=== PATIENT | female | born 1960 | race Caucasian/White ===

== ENCOUNTER → 2016-09-12 | Outpatient (CLI) | payer BC | LOC: MC.RAD 13:51 | DX: N63 Unspecified lump in breast (principal); Z80.3 Family history of malignant neoplasm of breast ==

== ENCOUNTER 2017-12-26 12:33 | Emergency (ER) | payer BC ==
[~2017-12-26] VITALS: Ht 162.6 cm; Wt 83.2 kg
[2017-12-26 12:36] VITALS: TEMP 97.6
[2017-12-26 13:00] VITALS: BP 139/89
[2017-12-26] MEDS ORDERED: CIPRO 500MG TA500 MG PO (13:04)
[2017-12-26 13:18] LABS: HEMATOCRIT 41.8 % (37.0-47.0); HEMOGLOBIN 13.8 g/dl (12.5-16.0); MEAN CELL VOLUME 90 fl (80.0-100.0); MEAN CORPUSCULAR HEMOGLOBIN 30 pg (27.0-31.0); MEAN CORPUSCULAR HGB CONC 33 g/dl (33.0-37.0); MEAN PLATELET VOLUME 9.2 fl (7.4-10.4); PLATELET COUNT 391 K/mm3 (130-400); RED BLOOD COUNT 4.64 M/mm3 (4.10-5.30)
[2017-12-26 13:24] LABS: INR 1.2 (0.8-3.0); PROTHROMBIN TIME 13.8 SECONDS (9.7-12.8)
[2017-12-26 13:32] LABS: ALBUMIN 4.5 gm/dL (3.5-5.0); BILIRUBIN,TOTAL 0.4 mg/dL (0.0-1.0); CALCIUM 10.2 mg/dL (8.4-10.2); CREATININE, serum 0.73 mg/dL (0.52-1.25); POTASSIUM 3.7 mmol/L (3.4-5.0); TOTAL PROTEIN 8.3 gm/dL (6.4-8.2)
[2017-12-26 13:36] LABS: BAND 10 % (0-10); LYMPHOCYTE 68 % (20.0-51.0); NEUTROPHILS 14 % (42.0-75.2); PLATELET ESTIMATE NORMAL (NORMAL)
[2017-12-26] MEDS ORDERED: ZOFRAN 4MG T4 MG/TAB PO (16:10)
[2017-12-26 16:17] VITALS: PULSE 94
== END 2017-12-26 16:17 | disposition home or self-care (01) ==
LOC: COL.ER 12:33
PROVIDERS: Emergency Medicine
DX: R11.10 Vomiting, unspecified (principal); Z79.01 Long term (current) use of anticoagulants; Z86.718 Personal history of other venous thrombosis and embolism
CPT/HCPCS: J2405; J7030; Q9967

== ENCOUNTER → 2018-03-27 | Outpatient (CLI) | payer BC ==
[~2018-03-27] MED LIST: CIPRO 500MG TA500 MG PO; ZOFRAN 4MG T4 MG/TAB PO
== END ==
LOC: COL.VAS 08:38
DX: Z13.6 Encounter for screening for cardiovascular disorders (principal); Z86.718 Personal history of other venous thrombosis and embolism

== ENCOUNTER → 2018-06-18 | Outpatient (CLI) | payer BC | LOC: MC.RAD 05-05 16:40 | DX: Z12.31 Encounter for screening mammogram for malignant neoplasm of breast (principal) ==

== ENCOUNTER → 2020-03-15 | Outpatient (CLI) | payer BC | LOC: MC.RAD 10:38 | DX: Z12.31 Encounter for screening mammogram for malignant neoplasm of breast (principal) ==

== ENCOUNTER → 2021-05-25 | Outpatient (CLI) | payer BC | LOC: MC.RAD 07:45 | DX: Z12.31 Encounter for screening mammogram for malignant neoplasm of breast (principal) ==

== ENCOUNTER → 2021-06-11 | Outpatient (CLI) | payer BC | LOC: MC.RAD 08:00 | DX: R92.8 Other abnormal and inconclusive findings on diagnostic imaging of breast (principal) ==

== ENCOUNTER 2021-12-10 10:42 | Emergency (ER) | payer BC ==
[~2021-12-10] VITALS: Ht 162.6 cm; Wt 90.5 kg
[2021-12-10 10:54] VITALS: TEMP 98.3
[2021-12-10 11:28] VITALS: BP 120/80; PULSE 80
== END 2021-12-10 11:29 | disposition home or self-care (01) ==
LOC: COL.ER 10:42
DX: S93.402A Sprain of unspecified ligament of left ankle, initial encounter (principal); Z28.310 Unvaccinated for COVID-19; X50.1XXA Overexertion from prolonged static or awkward postures, initial encounter

== ENCOUNTER → 2022-01-07 | Outpatient (CLI) | payer BC | LOC: MC.RAD 07:54 | DX: N64.89 Other specified disorders of breast (principal) ==

== ENCOUNTER → 2023-05-09 | Outpatient (CLI) | payer BC | LOC: CANSCHCLI → MC.RAD 08:56 | DX: Z12.31 Encounter for screening mammogram for malignant neoplasm of breast (principal) ==